=== PATIENT | male | born 1990 | race Caucasian/White ===

== ENCOUNTER 2018-07-28 18:31 | Emergency (ER) | payer OTHER ==
[~2018-07-28] VITALS: Ht 167.6 cm; Wt 61.4 kg
[2018-07-28] MEDS ORDERED: LORazepam 1 MG tablet PO ONE (18:50)
[2018-07-28 19:16] LABS: BASOPHILS % (AUTO) 0.4 % (0-1); EOSINOPHILS % (AUTO) 0.5 % (0-6); HEMATOCRIT 48.2 % (42.0-52.0); HEMOGLOBIN 15.9 g/dl (14.0-17.9); LYMPHOCYTES # (AUTO) 2.2 X10'3 (1.1-4.8); LYMPHOCYTES % (AUTO) 24.6 % (21-51); MEAN CORPUSCULAR HEMOGLOBIN 28.7 PG (27.0-31.0); MEAN CORPUSCULAR VOLUME 86.8 FL (78-98); MEAN PLATELET VOLUME 8.2 FL (7.4-10.4); MONOCYTES # (AUTO) 0.6 X10'3 (0-0.9); NEUTROPHILS % (AUTO) 67.5 % (42-75); PLATELET COUNT 198 X10'3 (140-440); RED BLOOD COUNT 5.55 X10'6 (4.70-6.10); RED CELL DISTRIBUTION WIDTH 13.7 % (11.5-14.5); WHITE BLOOD COUNT 8.9 X10'3 (4.5-11.0)
[2018-07-28 19:24] LABS: ALANINE AMINOTRANSFERASE 26 U/L (12-78); ALBUMIN 4.7 G/DL (3.4-5.0); ALBUMIN/GLOBULIN RATIO 1.3 (1.1-1.5); ALKALINE PHOSPHATASE 53 IU/L (46-116); ANION GAP 11 (8-16); ASPARTATE AMINO TRANSFERASE 29 U/L (10-37); BILIRUBIN,TOTAL 0.9 MG/DL (0.1-1.0); BLOOD UREA NITROGEN 17 MG/DL (7-18); BUN/CREATININE RATIO 17.9 (5.4-32.0); CALCIUM 9.7 MG/DL (8.5-10.1); CHLORIDE 104 MMOL/L (99-107); CREATININE 0.95 MG/DL (0.60-1.10); GLUCOSE 98 MG/DL (70-104); POTASSIUM 4.6 MMOL/L (3.5-5.1); SODIUM 141 MMOL/L (135-145); TOTAL CARBON DIOXIDE 25.6 MMOL/L (24-32); TOTAL PROTEIN 8.4 G/DL (6.4-8.2); eGFR > 90 ML/MIN
[2018-07-28 19:31] LABS: ETHANOL < 0.010 GM/DL (0.0-0.010)
--- NOTE | 2018-07-28 20:24 | NUR ---
Family (brother) had been visiting patient, left at this time. Patient continues to be tearful, though cooperative, and appreciative of care. Will monitor.
--- NOTE | 2018-07-28 20:25 | NUR ---
Noted order for telepsych, patient on 5150, written by MANISH, telepsych will be deferred, and consult with psych on site in am.
--- NOTE | 2018-07-28 20:38 | NUR ---
Sack meal provided to patient.
--- NOTE | 2018-07-28 20:45 | NUR ---
Patient escorted by director home to Over-Flow room 21
[2018-07-28 21:55] LABS: COLOR,URINE YELLOW (Yellow); GLUCOSE, URINE NEGATIVE (Neg); KETONES,URINE 40 mg/dl (Neg); LEUKOCYTE ESTERASE ,URINE NEGATIVE (Neg); NITRITES, URINE NEGATIVE (Neg); OCCULT BLOOD,URINE NEGATIVE (Neg); PROTEIN,URINE TRACE mg/dl (Neg); UROBILINOGEN,URINE 0.2 E.U/dL (0.2-1.0)
[2018-07-28] MEDS ORDERED: mirtazapine 15mg tablet PO ONE (21:55)
[2018-07-28 21:56] LABS: URINE AMPHETAMINE SCREEN NEGATIVE (Neg); URINE BARBITUATE SCREEN NEGATIVE (Neg); URINE BENZODIAZEPINES SCREEN NEGATIVE (Neg); URINE CANNABINOID SCREEN POSITIVE (Neg); URINE COCAINE SCREEN NEGATIVE (Neg); URINE METHADONE SCREEN NEGATIVE (Neg); URINE OPIATE SCREEN NEGATIVE (Neg); URINE PHENCYCLIDINE SCREEN NEGATIVE (Neg)
--- NOTE | 2018-07-28 22:06 | NUR ---
pt asked for something to help him sleep. reports that he usually sleeps fine when he doesn't have "this kind of stress." consulted kashmir [facility], ordered 15 mg of remeron and gave to pt.
[2018-07-28 22:17] LABS: CLARITY,URINE SLIGHTLY CLOUDY (Clear); UA COLLECTION TYPE CLN CATCH MIDSTREAM
[2018-07-28 22:20] LABS: MUCUS STRANDS MANY /LPF (Neg); SQUAMOUS EPITHELIAL CELL,UR FEW /LPF (FEW); TRANSITIONAL EPI CELLS,URINE FEW /HPF
[2018-07-28 22:21] LABS: BACTERIA,URINE FEW /HPF (Neg); RBC,URINE NONE SEEN /HPF (0-2); WBC,URINE 0-4 /HPF (0-4)
--- NOTE | 2018-07-29 00:52 | NUR ---
PT IS SLEEPING ON RIGHT SIDE. NO S/S OF DISTRESS, RR UNLABORED.
--- NOTE | 2018-07-29 02:11 | NUR ---
pt continues to sleep. no s/s of distress, will continue to monitor.
--- NOTE | 2018-07-29 03:35 | NUR ---
pt continues to sleep. no s/s of distress, will continue to monitor.
--- NOTE | 2018-07-29 04:51 | NUR ---
pt continues to sleep. no s/s of distress, will continue to monitor.
[2018-07-29 05:45] VITALS: BP 111/66
--- NOTE | 2018-07-29 06:57 | NUR ---
Patient sleeping on left side. No restlessness observed. Continue to monitor.
[2018-07-29] MEDS ORDERED: ibuprofen 200mg tablet PO PRN (08:15)
--- NOTE | 2018-07-29 09:10 | NUR ---
Patient requested med for tooth pain 10/18. RN gave patient motrin. Patient states he is very depressed and feeling suicidal. Patient has depressed affect. Continue to monitor.
--- NOTE | 2018-07-29 11:30 | NUR ---
Patient arrested by [employer] Investigators and taken away in handcuffs. Patient calm and cooperative. All belongings given to patient.
[2018-07-29] MEDS ORDERED: mirtazapine 15mg tablet PO SCH (21:00)
== END 2018-07-29 11:30 ==
LOC: ER 18:32
DX: F32.9 Major depressive disorder, single episode, unspecified (principal); F12.90 Cannabis use, unspecified, uncomplicated
CPT/HCPCS: 36415; 80053; 80305; 80320; 81001; 84443; 85025; 99285